=== PATIENT | male | born 1965 | race Caucasian/White ===

== ENCOUNTER 2017-07-05 18:30 | Emergency (ER) | payer MEDICAID, OTHER ==
[2017-07-05 18:36] VITALS: BMI 24.1
[2017-07-05 18:44] VITALS: RESP 18; TEMP 98.7
--- NOTE | 2017-07-05 19:47 | ED PDOC ---
Arrival/HPI - General Historian: Patient - History of Present Illness Time/Duration: Other (2 weeks) Symptom Course: Worsening Quality: Burning Severity Level: 10 - General Chief Complaint: Groin Pain Time Seen by Provider: 07/05/17 19:47 - History of Present Illness Narrative History of Present Illness (Text): 07/05/17 19:54 This is a 52 year old male with PMHx asthma who presents complaining of left sided groin pain. Patient states that it began 2 weeks ago but pain has exacerbated since then. The pain started out as numbness before converting to pain. It is localized in the suprapubic region. There is intermittent radiation up to the right lower quadrant of the abdomen. Patient states that his seasonal allergies have exacerbated the issue. Pain worsens with coughing, sneezing, and walking. Patient has tried Naproxen at home without relief. PMH: asthma PSH: denies Allergies: Seasonal Social: Denies tobacco, alcohol, drugs. Fam Hx: Non-contributory PMD: none (Gayjustin,Kvng S) Past Medical History - Provider Review Nursing Documentation Reviewed: Yes - Infectious Disease Hx of Infectious Diseases: None - Psychiatric Hx Substance Use: No Family/Social History - Physician Review Nursing Documentation Reviewed: Yes Family/Social History: No Known Family HX Smoking Status: Never Smoked Hx Alcohol Use: No Hx Substance Use: No Allergies/Home Meds Allergies/Adverse Reactions: Allergies No Known Allergies Allergy (Verified 07/05/17 18:38) Review of Systems - Review of Systems Constitutional: Normal Eyes: Normal ENT: Rhinorrhea, Other (sneezing) Respiratory: Cough (dry) Cardiovascular: Normal Gastrointestinal: Normal Genitourinary Male: Normal, Other (suprapubic pain) Musculoskeletal: Myalgias (generalized) Skin: Normal Neurological: Normal Endocrine: Normal Hemo/Lymphatic: Normal Psychiatric: Normal Physical Exam Vital Signs Reviewed: Yes Temperature: Afebrile Blood Pressure: Normal Pulse: Regular Respiratory Rate: Normal Appearance: Positive for: Well-Appearing Pain Distress: Mild Mental Status: Positive for: Alert and Oriented X 3 - Systems Exam Head: Present: Atraumatic, Normocephalic Pupils: Present: PERRL Extroacular Muscles: Present: EOMI Conjunctiva: Present: Normal Mouth: Present: Moist Mucous Membranes Neck: Present: Normal Range of Motion Respiratory/Chest: Present: Clear to Auscultation, Good Air Exchange. No: Accessory Muscle Use Cardiovascular: Present: Regular Rate and Rhythm, Normal S1, S2 Abdomen: Present: Normal Bowel Sounds. No: Tenderness, Distention Genitourinary Male: Present: Hernias (left inguinal hernia-reducible) Upper Extremity: Present: Normal Inspection, NORMAL PULSES. No: Edema Lower Extremity: Present: Normal Inspection, NORMAL PULSES. No: Edema, CALF TENDERNESS Neurological: Present: GCS=15, CN II-XII Intact Skin: Present: Warm, Dry, Normal Color. No: Rashes Psychiatric: Present: Alert, Oriented x 3 Medical Decision Making ED Course and Treatment: 07/05/17 20:02 Patient discharged with Motrin and Zyrtec and instructed to follow up with the [facility]. Information and prescriptions provided. (Kvng Hanna) Seen and examined with resident. 52 y/o M p/w L groin pain x 2-3 weeks. On examination, L inguinal hernia, reducible, nontender, no skin changes. (Sancho Kuhn) Disposition/Present on Arrival - Present on Arrival Any Indicators Present on Arrival: No History of DVT/PE: No History of Uncontrolled Diabetes: No Urinary Catheter: No History of Decub. Ulcer: No History Surgical Site Infection Following: None - Disposition Have Diagnosis and Disposition been Completed?: Yes Disposition Time: 20:00 - Disposition Diagnosis: Left inguinal hernia Disposition: HOME/ ROUTINE Patient Problems: Current Active Problems Problem Status Onset Left inguinal hernia Acute Condition: STABLE Additional Instructions: Please follow up at the [facility]. Their information has been provided in your paperwork. Please see them for management of your asthma and seasonal allergies. Please see them and get a referral for a surgeon to take care of your left sided inguinal hernia. Take Motrin 1 tab by mouth every 6 hours ONLY IF you have pain. Take it with food. Take Zyrtec 1 capsule by mouth once a day. If you experience any worsening symptoms or pain, please return to the emergency room. Prescriptions: Cetirizine HCl [Zyrtec] 10 mg PO DAILY #20 capsule Ibuprofen [Motrin] 600 mg PO Q6 PRN #20 tab PRN Reason: Pain, Moderate (4-7) Referrals: [facility] at [facility] [Outside] - Follow up with primary Forms: [employer] (Telugu)
[2017-07-05 20:40] VITALS: BP 135/76; PULSE 74; O2SAT 98
== END 2017-07-05 20:39 | disposition home or self-care (01) ==
LOC: ED 18:30
DX: K40.90 Unilateral inguinal hernia, without obstruction or gangrene, not specified as recurrent (principal)

== ENCOUNTER 2018-08-26 06:20 | Inpatient (IN) | payer MEDICAID, OTHER ==
[2018-08-26 07:57] LABS: BASO # 0.02 K/mm3 (0.0-2.0); BASO % 0.2 % (0.0-3.0); EOS # 0.3 (0.0-0.7); EOS % 3.3 % (1.5-5.0); GRAN # 5.31 (1.4-6.5); GRAN % 65.7 % (50.0-68.0); HEMOGLOBIN 12.4 g/dL (14.0-18.0); LYMPH # 1.9 (1.2-3.4); MEAN CELL VOLUME 78.5 fl (80.0-105.0); MEAN CORPUSCULAR HEMOGLOBIN 23.8 pg (25.0-35.0); MEAN CORPUSCULAR HGB CONC 30.2 g/dl (31.0-37.0); MEAN PLATELET VOLUME 10.6 fl (7.0-11.0); MONO # 0.6 (0.1-0.6); MONO % 6.8 % (1.0-6.0); RBC 5.22 10^6/uL (3.5-6.1); RED CELL DISTRIBUTION WIDTH 14.1 % (11.5-14.5); WHITE BLOOD COUNT 8.1 10^3/uL (4.5-11.0)
--- NOTE | 2018-08-26 08:06 | ED PDOC ---
Arrival/HPI - General Chief Complaint: Chest Pain Time Seen by Provider: 08/26/18 07:37 Historian: Patient - History of Present Illness Narrative History of Present Illness (Text): 08/26/18 07:32 53 M with PMHx of asthma, Colonoscopy (last August), who presents with cc of intermittent left sided chest pain radiating to left arm and neck since 2 hours prior to arrival. Patient reports he thought it was indigestion and took a few Pepto Bismol, with significant relief until symptoms returned. Patient notes intermittent pain in back, cold sweats, and fluttering of heart associated with pain felt on left side of chest. Patient states he felt nauseous and notes he never has nausea. Patient reports no current pain while laying down, but notes mild discomfort in left side of chest. Mother of heart disease at the age of 62. Patient is a nonsmoker and drinks "once in a blue." Patient denies shortness of breath or any other complaints. PMD: Dr. Alvarez Time/Duration: 1-3 hours (patient notes onset 2 hours prior to arrival ) Symptom Onset: Sudden Symptom Course: Unchanged Activities at Onset: Light Context: Home Past Medical History - Provider Review Nursing Documentation Reviewed: Yes - Infectious Disease Hx of Infectious Diseases: None - Cardiac Hx Cardiac Disorders: No - Pulmonary Hx Respiratory Disorders: Yes Hx Asthma: Yes (seasonal related to allergies) - Neurological Hx Neurological Disorder: No - HEENT Hx HEENT Disorder: No - Renal Hx Renal Disorder: No - Endocrine/Metabolic Hx Endocrine Disorders: No - Hematological/Oncological Hx Blood Disorders: No - Integumentary Hx Dermatological Disorder: No - Musculoskeletal/Rheumatological Hx Musculoskeletal Disorders: Yes Other/Comment: BILATERAL KNEE ARTHROSCOPIES - Gastrointestinal Hx Gastrointestinal Disorders: No - Genitourinary/Gynecological Hx Genitourinary Disorders: No - Psychiatric Hx Psychophysiologic Disorder: No Hx Substance Use: No - Surgical History Hx Arthroscopy: Yes (BILATERAL KNEES) - Anesthesia Hx Anesthesia: Yes Hx Anesthesia Reactions: No Hx Malignant Hyperthermia: No Family/Social History - Physician Review Nursing Documentation Reviewed: Yes Family/Social History: Other (Patient notes mother of heart disease at age of 62.) Smoking Status: Never Smoked Hx Alcohol Use: Yes Frequency of alcohol use: Socially Hx Substance Use: No Allergies/Home Meds Allergies/Adverse Reactions: Allergies shrimp Allergy (Verified 08/26/18 06:23) ITCHING Home Medications: Home Meds Medication Instructions Recorded Confirmed Albuterol HFA [Ventolin HFA 90 2 puff IH BID PRN 08/19/17 08/26/18 mcg/actuation (8 g)] Review of Systems - Physician Review All systems were reviewed & negative as marked: Yes (All other systems negative except that noted in the HPI.) Physical Exam - Physical Exam Narrative Physical Exam (Text): PE: Gen: VS reviewed, alert, well developed, well nourished, nontoxic, mild distress Eye: EOMI, PERRL Neck: no JVD, supple, no adenopathy CV: regular rate, regular rhythm, no rubs,no murmur, S1, S2 Pulm: no distress, clear to auscultation, no wheeze, no rhonchi, breath sounds equal, no rales Abd: soft, nontender, no guarding, no rebound, no rigidity Ext: no edema Skin: good color, no rash, no cyanosis Psych: responds appropriately to questions, normal affect Neuro: oriented x3, CN2-12 intact grossly, motor intact, sensation intact Vital Signs Reviewed: Yes Vital Signs Temp Pulse Resp BP Pulse Ox 08/26/18 06:31 97.5 F L 62 17 149/94 H 100 Temperature: Afebrile Blood Pressure: Normal Pulse: Regular Respiratory Rate: Normal Appearance: Positive for: Well-Appearing, Non-Toxic, Comfortable Pain Distress: Mild Mental Status: Positive for: Alert and Oriented X 3 Medical Decision Making ED Course and Treatment: 08/26/18 07:32 Impression: 53 M presents with cc of intermittent left sided chest pain radiating to left arm and neck since 2 hours prior to arrival. Differential Diagnosis included but are not limited to: Plan: -- Labs -- X-ray of chest -- monitoring and evaluation advisor -- Reassess and disposition Prior Visits: Notes and results from previous visits were reviewed. Patient was last seen in the emergency department on 07/05/17 for left sided groin pain. Patient was discharged home in stable condition, given directions for care, and directed to follow up with PMD. Progress Notes: 08/26/18 09:13 re-eval, patient feels better at this time, heart score =4, will admit for further workup, cardiac eval rule out acs, no significant clinical suspicion for aortic dissection 08/26/18 09:[address] Cohen who is aware of and agrees with plan. Dr. Cohen accepts admission. - Lab Interpretations Lab Results: 08/26/18 06:46 Lab Results 08/26/18 06:46: WBC 8.1, RBC 5.22, Hgb 12.4 L, Hct 41.0 L, MCV 78.5 L, MCH 23.8 L, MCHC 30.2 L, RDW 14.1, Plt Count 252, MPV 10.6, Gran % 65.7, Lymph % (Auto) 24.0, [place] % (Auto) 6.8 H, Eos % (Auto) 3.3, Baso % (Auto) 0.2, Gran # 5.31, Lymph # (Auto) 1.9, [place] # (Auto) 0.6, Eos # (Auto) 0.3, Baso # (Auto) 0.02 - RAD Interpretation Narrative RAD Interpretations (Text): 08/26/18 08:19 cxr my read: no focal infiltrate, no ptx, no pleural effusion. I agree with radiologist interpretations. Radiology Orders: 08/26/18 07:37 CHEST PORTABLE [RAD] Stat Shoe Designer: ED Physician - EKG Interpretation EKG Interpretation (Text): 08/26/18 08:06 0629: nsr at 64 bpm, nml qrs, nml axis, t wave inversion in leads v1-v2, however the t waves are not biphasic 08/26/18 09:45 Senior Electrical Project Manager read: NSR at 85 BPM Interpreted by ED Physician: Yes Type: 12 lead EKG - Scribe Statement The provider has reviewed the documentation as recorded by the Leigh Annibashok Lewis All medical record entries made by the Marietta were at my direction and personally dictated by me. I have reviewed the chart and agree that the record accurately reflects my personal performance of the history, physical exam, medical decision making, and the department course for this patient. I have also personally directed, reviewed, and agree with the discharge instructions and disposition. Disposition/Present on Arrival - Present on Arrival Any Indicators Present on Arrival: No History of DVT/PE: No History of Uncontrolled Diabetes: No Urinary Catheter: No History of Decub. Ulcer: No History Surgical Site Infection Following: None - Disposition Have Diagnosis and Disposition been Completed?: Yes Diagnosis: Angina at rest Disposition: HOSPITALIZED Disposition Time: 09:47 Patient Plan: Observation Patient Problems: Current Active Problems Problem Status Onset Angina at rest Acute Condition: STABLE
[2018-08-26 08:07] LABS: ALB/GLOB RATIO 1.4 (1.1-1.8); ALBUMIN 4.5 g/dL (3.0-4.8); ALT/SGPT 33 U/L (7-56); AST/SGOT 43 U/L (17-59); BLOOD UREA NITROGEN 22 mg/dL (7-21); CALCIUM 9.5 mg/dL (8.4-10.5); GFR NON-AFRICAN AMERICAN > 60
[2018-08-26 08:11] LABS: INR 0.97; PARTIAL THROMBOPLASTIN TIME 28.1 Seconds (25.1-36.5); PROTHROMBIN TIME 11.2 SECONDS (9.4-12.5)
--- NOTE | 2018-08-26 09:02 | RAD ---
Date of service: 08/26/2018 HISTORY: chest pain COMPARISON: No prior. FINDINGS: LUNGS: No active pulmonary disease. PLEURA: No significant pleural effusion identified, no pneumothorax apparent. CARDIOVASCULAR: No aortic atherosclerotic calcification present. Normal cardiac size. No pulmonary vascular congestion. OSSEOUS STRUCTURES: No significant abnormalities. VISUALIZED UPPER ABDOMEN: Normal. OTHER FINDINGS: None. IMPRESSION: No acute cardiopulmonary disease appreciated.
[2018-08-26 13:38] VITALS: BMI 21.9
[2018-08-26] MEDS ORDERED: Influenza Vaccine 60 mcg/0.5 mL SYR (4YR UP) IM ONE (13:39)
[2018-08-26] MEDS ORDERED: Pneumococcal 23-Valent Vaccine IM ONE (13:39)
--- NOTE | 2018-08-26 16:25 | CP.PCM.HP ---
History of Present Illness - History of Present Illness History of Present Illness: Dillon Marie PGY1 History and Physical for Dr Cohen Pt is a 53yo male with a PMH of asthma who presents to the ED complaining of chest pain which started at 3am last night. Pt states the pain was located on the left side of his chest, 8/10 burning pain which radiated to his neck, arm and shoulder blade. Pt states he ate some ice cream and brownies last night which may have caused him indigestion. He state he rarely experiences indig estion, but when he does it is not as intense as this episode. Pt states he exercises regularly. Pt states he felt nauseous, but denied vomiting. Pt states he felt some indigestion during the day yesterday and tried to take some PeptoBismol which did not help relieve the pain. Pt states he felt some palpitations during this episode. The pain was intermittent. Pt denies blood in the stool. A 12 point ROS was obtained and added to the HPI where appropriate. PMH: asthma uses rescue inhaler 3-4 times per week, never intubated PSH: inguinal hernia, colonoscopy (no abnormalities found) SH: occasional alcohol, never smoker, marijuana once every 3 months FH: Mother 62 , [place], [place], CHF. Father 79, HTN, DM Home meds: albuterol Allergies: NKDA PMD: Dr Alvarez Present on Admission - Present on Admission Any Indicators Present on Admission: No Review of Systems - Review of Systems Review of Systems: a 12 point ROS was obtained and added to the HPI where appropriate Past Patient History - Infectious Disease Hx of Infectious Diseases: None - Past Medical History & Family History Past Medical History?: Yes - Past Social History Smoking Status: Never Smoked - CARDIAC Hx Cardiac Disorders: No - PULMONARY Hx Respiratory Disorders: Yes Hx Asthma: Yes (seasonal related to allergies) - NEUROLOGICAL Hx Neurological Disorder: No - HEENT Hx HEENT Problems: No - RENAL Hx Chronic Kidney Disease: No - ENDOCRINE/METABOLIC Hx Endocrine Disorders: No - HEMATOLOGICAL/ONCOLOGICAL Hx Blood Disorders: No - INTEGUMENTARY Hx Dermatological Problems: No - MUSCULOSKELETAL/RHEUMATOLOGICAL Hx Musculoskeletal Disorders: Yes Hx Falls: No Other/Comment: b/l arthroscopic knee sx 4 yrs ago - GASTROINTESTINAL Hx Gastrointestinal Disorders: Yes Other/Comment: colonoscopy at [facility] [place] 07/14/18 post dx hemorrhoids, 15 lb weight loss due to " sports, walking, exercise." pt stated - GENITOURINARY/GYNECOLOGICAL Hx Genitourinary Disorders: No - PSYCHIATRIC Hx Psychophysiologic Disorder: No Hx Substance Use: No - SURGICAL HISTORY Hx Surgeries: Yes - ANESTHESIA Hx Anesthesia: Yes Hx Anesthesia Reactions: No Hx Malignant Hyperthermia: No Meds Allergies/Adverse Reactions: Allergies Allergy/AdvReac Type Severity Reaction Status Date / Time Gadolinium-Containing Allergy RASH Verified 08/26/18 17:18 Contrast Medi Iodinated Contrast- Oral and Allergy RASH Verified 08/26/18 17:18 IV Dye shrimp Allergy ITCHING Verified 08/26/18 06:23 Physical Exam - Constitutional Appears: Non-toxic, No Acute Distress - Head Exam Head Exam: ATRAUMATIC, NORMAL INSPECTION, NORMOCEPHALIC - Eye Exam Eye Exam: EOMI - ENT Exam ENT Exam: Mucous Membranes Moist - Neck Exam Neck exam: Positive for: Full Rom - Respiratory Exam Respiratory Exam: Clear to Auscultation Bilateral, NORMAL BREATHING PATTERN. absent: Wheezes, Respiratory Distress - Cardiovascular Exam Cardiovascular Exam: RRR, +S1, +S2. absent: Diastolic murmur, Systolic Murmur - GI/Abdominal Exam GI & Abdominal Exam: Normal Bowel Sounds, Soft - Extremities Exam Extremities exam: Positive for: full ROM, normal inspection. Negative for: calf tenderness, pedal edema, tenderness, pedal pulses present - Neurological Exam Neurological exam: Alert, Oriented x3 - Psychiatric Exam Psychiatric exam: Normal Affect, Normal Mood - Skin Skin Exam: Dry, Intact, Normal Color, Warm Results - Vital Signs Recent Vital Signs: Last Vital Signs Temp 98 F 08/26/18 11:58 Pulse 60 08/26/18 13:16 Resp 18 08/26/18 13:16 BP 138/81 08/26/18 11:58 Pulse Ox 98 08/26/18 11:58 - Labs Result Diagrams: 08/26/18 06:46 08/26/18 06:46 Labs: Laboratory Results - last 24 hr 08/26/18 08/26/18 08/26/18 06:46 06:46 06:46 WBC 8.1 RBC 5.22 Hgb 12.4 L Hct 41.0 L MCV 78.5 L MCH 23.8 L MCHC 30.2 L RDW 14.1 Plt Count 252 MPV 10.6 Gran % 65.7 Lymph % (Auto) 24.0 [place] % (Auto) 6.8 H Eos % (Auto) 3.3 Baso % (Auto) 0.2 Gran # 5.31 Lymph # (Auto) 1.9 [place] # (Auto) 0.6 Eos # (Auto) 0.3 Baso # (Auto) 0.02 PT 11.2 INR 0.97 APTT 28.1 D-Dimer, Quantitative Sodium 141 Potassium 4.3 Chloride 104 Carbon Dioxide 29 Anion Gap 13 BUN 22 H Creatinine 0.8 Est GFR ( Amer) > 60 Est GFR (Non-Af Amer) > 60 Random Glucose 108 Calcium 9.5 Total Bilirubin 0.8 AST 43 ALT 33 Alkaline Phosphatase 82 Troponin I 0.10 Total Protein 7.7 Albumin 4.5 Globulin 3.2 Albumin/Globulin Ratio 1.4 08/26/18 15:20 WBC RBC Hgb Hct MCV MCH MCHC RDW Plt Count MPV Gran % Lymph % (Auto) [place] % (Auto) Eos % (Auto) Baso % (Auto) Gran # Lymph # (Auto) [place] # (Auto) Eos # (Auto) Baso # (Auto) PT INR APTT D-Dimer, Quantitative < 200 Sodium Potassium Chloride Carbon Dioxide Anion Gap BUN Creatinine Est GFR ( Amer) Est GFR (Non-Af Amer) Random Glucose Calcium Total Bilirubin AST ALT Alkaline Phosphatase Troponin I Total Protein Albumin Globulin Albumin/Globulin Ratio Assessment & Plan - Assessment and Plan (Free Text) Assessment: Atypical Plan: NSTEMI - EKG shows some T wave inversions in septal leads, but no ST elevations or depressions - Troponin 0.1, 5.16, continue to trend - INR 0.97 - D-Dimer negative - HA1C - Lipid panel - UDS - TSH - follow up Mg, phos - pt given stat dose of ASA, plavix, lipitor, heparin drip, metoprolol - zofran PRN for nausea - ECHO ordered - NPO after midnight - Cardio consulted, Asiya plan for cath tomorrow morning - ICU consult, Dr Bolden Microcytic Anemia - Hgb 12.4 - iron, ferritin, TIBC - B12, folate - continue to monitor Asthma - no signs of wheezing, SOB, respiratory distress Ppx - pantoprazole - HHD Pt seen, examined, assessment and plan discussed with Dr Noel Marie PGY1, - Date & Time Date: 08/26/18 Time: 15:00
[2018-08-26] MEDS ORDERED: Heparin25000 units/250ml 1/2NS 25,000 UNITS/250 ML BAG IV SCH (16:30)
--- NOTE | 2018-08-26 17:12 | PN ---
DATE: 08/26/2018 SUBJECTIVE: I was notified at 04:23 p.m. with the consult on this patient who presented to the emergency room this morning. From the record, his EKG was done at around 06:30 a.m. The patient's initial EKG was unremarkable. However, second troponin was reported to be 5.16. The patient had 12 beats of nonsustained ventricular tachycardia on the monitor. The patient did report palpitation to the emergency room team prior to his admission. I did order a stat repeat EKG. I started the patient on intravenous heparin 5000 units bolus with a maintenance infusion as well as a loading dose of Plavix 300 mg, Lopressor 25 mg twice a day and Lipitor 80 mg daily and I requested the patient to be immediately transferred to the ICU. The patient will have stat repeat 12-lead EKG and there are no acute ischemic findings that warrant immediate cardiac cath, the patient will be scheduled for the procedure tomorrow a.m. unless the patient develops recurrent nonsustained ventricular tachycardia or hemodynamic instability. Case was discussed with Dr. Conway and will be discussed with the director veterinary, Dr. Bolden. Joshua Braden MD
--- NOTE | 2018-08-26 17:23 | CP.PCM.CON ---
History of Present Illness - History of Present Illness History of Present Illness: MICU CONSULT NOTE REASON FOR CONSULT: NSTEMI, NSVT HPI Patient is 53yo male with PMHx of asthma, presented to the ER complaining of ch ets pain, left sided, radiating down the left arm, associated with palpitations. Denies, fever, chills cough, sob, PARDO, dizziness. Initial cardiac enzymes and EKG were negative, repeat troponin 5, EKG with Qwaves in septal leads with TWI. Pt complaining of fluttering. No other constitutional symptoms. PMH: asthma PSH: inguinal hernia SH: occasional alcohol, never smoker, marijuana once every 3 months FH: Mother 62 , DM, CHF. Father 79, HTN, DM Home meds: albuterol Allergies: NKDA Review of Systems - Review of Systems Review of Systems: as per HPI Past Patient History - Infectious Disease Hx of Infectious Diseases: None - Past Medical History & Family History Past Medical History?: Yes - Past Social History Smoking Status: Never Smoked - CARDIAC Hx Cardiac Disorders: No - PULMONARY Hx Respiratory Disorders: Yes Hx Asthma: Yes (seasonal related to allergies) - NEUROLOGICAL Hx Neurological Disorder: No - HEENT Hx HEENT Problems: No - RENAL Hx Chronic Kidney Disease: No - ENDOCRINE/METABOLIC Hx Endocrine Disorders: No - HEMATOLOGICAL/ONCOLOGICAL Hx Blood Disorders: No - INTEGUMENTARY Hx Dermatological Problems: No - MUSCULOSKELETAL/RHEUMATOLOGICAL Hx Musculoskeletal Disorders: Yes Hx Falls: No Other/Comment: b/l arthroscopic knee sx 4 yrs ago - GASTROINTESTINAL Hx Gastrointestinal Disorders: Yes Other/Comment: colonoscopy at [facility] 07/14/18 post dx hemorrhoids, 15 lb weight loss due to " sports, walking, exercise." pt stated - GENITOURINARY/GYNECOLOGICAL Hx Genitourinary Disorders: No - PSYCHIATRIC Hx Psychophysiologic Disorder: No Hx Substance Use: No - SURGICAL HISTORY Hx Surgeries: Yes - ANESTHESIA Hx Anesthesia: Yes Hx Anesthesia Reactions: No Hx Malignant Hyperthermia: No Meds Allergies/Adverse Reactions: Allergies Allergy/AdvReac Type Severity Reaction Status Date / Time shrimp Allergy ITCHING Verified 08/26/18 06:23 - Medications Medications: Current Medications Acetaminophen (Tylenol 325mg Tab) 650 mg PO Q4H PRN PRN Reason: Fever >100.4 F Aspirin (Aspirin Chewable) 81 mg PO DAILY [facility] Atorvastatin Calcium (Lipitor) 80 mg PO DIN [facility] Heparin Sodium/Sodium Chloride (Heparin 53125 Units/250ml 1/2 Normal Saline) 25,000 units in 250 mls @ 7.62 mls/hr IV .Q24H [facility]; Protocol Last Admin: 08/26/18 16:58 Dose: 12 units/kg/hr, 7.62 mls/hr Metoprolol Tartrate (Lopressor) 25 mg PO BID [facility] Ondansetron HCl (Zofran Inj) 4 mg IVP Q4H PRN PRN Reason: Nausea/Vomiting Pantoprazole Sodium (Protonix Ec Tab) 40 mg PO 0600 [facility] Physical Exam - Constitutional Appears: Non-toxic, No Acute Distress - Head Exam Head Exam: NORMAL INSPECTION - Eye Exam Eye Exam: Normal appearance - ENT Exam ENT Exam: Mucous Membranes Moist - Neck Exam Neck exam: Positive for: Full Rom - Respiratory Exam Respiratory Exam: Clear to Auscultation Bilateral, NORMAL BREATHING PATTERN - Cardiovascular Exam Cardiovascular Exam: REGULAR RHYTHM, +S1, +S2 - GI/Abdominal Exam GI & Abdominal Exam: Normal Bowel Sounds, Soft - Extremities Exam Extremities exam: Positive for: normal inspection - Back Exam Back exam: NORMAL INSPECTION - Neurological Exam Neurological exam: Alert, Oriented x3 - Psychiatric Exam Psychiatric exam: Normal Affect - Skin Skin Exam: Normal Color, Warm Results - Vital Signs Recent Vital Signs: Last Vital Signs Temp 97.7 F 08/26/18 12:04 Pulse 60 08/26/18 13:16 Resp 18 08/26/18 13:16 BP 136/89 08/26/18 16:18 Pulse Ox 99 08/26/18 12:04 - Labs Result Diagrams: 08/26/18 06:46 08/26/18 06:46 Labs: Laboratory Results - last 24 hr 08/26/18 08/26/18 08/26/18 06:46 06:46 06:46 WBC 8.1 RBC 5.22 Hgb 12.4 L Hct 41.0 L MCV 78.5 L MCH 23.8 L MCHC 30.2 L RDW 14.1 Plt Count 252 MPV 10.6 Gran % 65.7 Lymph % (Auto) 24.0 Cannon % (Auto) 6.8 H Eos % (Auto) 3.3 Baso % (Auto) 0.2 Gran # 5.31 Lymph # (Auto) 1.9 Cannon # (Auto) 0.6 Eos # (Auto) 0.3 Baso # (Auto) 0.02 PT 11.2 INR 0.97 APTT 28.1 D-Dimer, Quantitative Sodium 141 Potassium 4.3 Chloride 104 Carbon Dioxide 29 Anion Gap 13 BUN 22 H Creatinine 0.8 Est GFR ( Amer) > 60 Est GFR (Non-Af Amer) > 60 Random Glucose 108 Calcium 9.5 Total Bilirubin 0.8 AST 43 ALT 33 Alkaline Phosphatase 82 Troponin I 0.10 Total Protein 7.7 Albumin 4.5 Globulin 3.2 Albumin/Globulin Ratio 1.4 08/26/18 08/26/18 15:20 15:20 WBC RBC Hgb Hct MCV MCH MCHC RDW Plt Count MPV Gran % Lymph % (Auto) Cannon % (Auto) Eos % (Auto) Baso % (Auto) Gran # Lymph # (Auto) Cannon # (Auto) Eos # (Auto) Baso # (Auto) PT INR APTT D-Dimer, Quantitative < 200 Sodium Potassium Chloride Carbon Dioxide Anion Gap BUN Creatinine Est GFR ( Amer) Est GFR (Non-Af Amer) Random Glucose Calcium Total Bilirubin AST ALT Alkaline Phosphatase Troponin I 5.16 H* D Total Protein Albumin Globulin Albumin/Globulin Ratio Assessment & Plan - Assessment and Plan (Free Text) Assessment: 53yo male a/w CP, NSTEMI, NSVT CP NSTEMI Non-sustained Vtach Asthma - currently afebrile, BP stable, comfortable in NAD - EKG with septal Qwaves, TWI - Troponin uptrending, started on heparin drip, given ASA, Plavix Recommend: - supp o2 as needed, Xopenex PRN, goal sat 92% - NO ID issues - BP control - FS control - ASA, Plavix, Statin, BB - heparin drip - NPO after MN for cath in Am - GI ppx - DVT ppx - Transfer to CCU
[2018-08-26] MEDS ORDERED: methylPREDNISolone 80 MG in Sodium Chloride 0.9% 100 ML IVPB SCH (18:00)
--- NOTE | 2018-08-26 18:42 | CARD ---
APPROVED REPORT Date of service: 08/26/2018 EKG Measurement Heart [id number] <Conclusion> Normal sinus rhythm Possible septal infarct, age undetermined Abnormal ECG
--- NOTE | 2018-08-26 19:12 | CARD ---
APPROVED REPORT Date of service: 08/26/2018 EKG Measurement Heart [id number] <Conclusion> Normal sinus rhythm with sinus arrhythmia Possible septal infarct, age undetermined Abnormal ECG
[2018-08-26 22:17] LABS: BARBITURATES, UR NEGATIVE (NEGATIVE); BENZODIAZEPINES, UR NEGATIVE (NEGATIVE); OPIATES, UR NEGATIVE (NEGATIVE); PHENCYCLIDINE, UR NEGATIVE (NEGATIVE)
[2018-08-27] MEDS ORDERED: Pantoprazole 40 mg EC Tab PO SCH (06:00)
[2018-08-27 06:44] LABS: IRON 63 ug/dL (45-180)
[2018-08-27 06:51] LABS: ALB/GLOB RATIO 1.4 (1.1-1.8); ALBUMIN 4.6 g/dL (3.0-4.8); ALT/SGPT 38 U/L (7-56); AST/SGOT 69 U/L (17-59); BLOOD UREA NITROGEN 17 mg/dL (7-21); CALCIUM 9.7 mg/dL (8.4-10.5); GFR NON-AFRICAN AMERICAN > 60; HDL CHOLESTEROL 65 mg/dL (29-60)
[2018-08-27 06:53] LABS: % IRON SATURATION 18 % (20-55); TOTAL IRON BINDING CAPACITY 358 ug/dL (261-462)
[2018-08-27 06:57] LABS: LDL CHOLESTEROL 101 mg/dL (0-129)
[2018-08-27 07:21] LABS: HEMOGLOBIN 13.1 g/dL (14.0-18.0); MEAN CELL VOLUME 77.6 fl (80.0-105.0); MEAN CORPUSCULAR HEMOGLOBIN 23.8 pg (25.0-35.0); MEAN CORPUSCULAR HGB CONC 30.7 g/dl (31.0-37.0); MEAN PLATELET VOLUME 10.1 fl (7.0-11.0); RBC 5.5 10^6/uL (3.5-6.1); RED CELL DISTRIBUTION WIDTH 14.1 % (11.5-14.5); WHITE BLOOD COUNT 8.6 10^3/uL (4.5-11.0)
[2018-08-27] MEDS ORDERED: Nitroglycerin 50mg in D5W 50 MG/250 ML BOTTLE IV ONE (09:01)
[2018-08-27] MEDS ORDERED: Iodixanol 320 MG/ML 100 ML BOTTLE IV ONE (09:01)
[2018-08-27] MEDS ORDERED: Iodixanol 320 MG/ML 200 ML BOTTLE IV ONE (09:01)
[2018-08-27] MEDS ORDERED: Iohexol 350mgl/ml 50 ML ONE (09:01)
[2018-08-27] MEDS ORDERED: Lidocaine 2% PF (10 ml) Amp ONE (09:01)
[2018-08-27] MEDS ORDERED: Phenylephrine 10 mg/ml Inj ONE (09:01)
[2018-08-27] MEDS ORDERED: DiphenhydrAMINE 50 mg/ml Inj ONE (11:03)
[2018-08-27] MEDS ORDERED: Midazolam 2 MG/2 ML VIAL ONE (11:03)
--- NOTE | 2018-08-27 11:11 | CP.CCUPN ---
<Yousif Arias - Last Filed: 08/27/18 16:02> CCU Subjective - Physician Review Subjective (Free Text): 08/27/18 11:08 Patient seen and examined at bedside in no acute distress. Patient states he has no major complaints overnight. Does admit to an episode or two of shortness of breath which lasted a few seconds. Patient states this has been going on for the past few years as he aged. States he slept fine. Amadou chest pain, palpitations, nausea, abdominal pain, dizziness, headache, diaphoresis, fevers, chills. Patient aware of cath procedure to take place this morning at 10 a.m. CCU Objective - Vital Signs / Intake & Output Vital Signs (Last 4 hours): Vital Signs Temp Pulse Resp BP Pulse Ox 08/27/18 08:52 71 124/80 08/27/18 08:14 97.5 F L 08/27/18 08:00 77 12 124/80 95 Intake and Output (Last 8hrs): Intake & Output 08/26/18 08/27/18 08/27/18 22:59 06:59 14:59 Intake Total 430 Output Total 900 Balance -470 Weight 63.219 kg Intake: IV 130 Right Forearm 90 Oral 300 Output: Urine 900 Urine, Voided 900 Other: # Voids Urine, Voided 2 - Physical Exam Head: Positive for: Atraumatic, Normocephalic Pupils: Positive for: PERRL Extroacular Muscles: Positive for: EOMI Mouth: Positive for: Moist Mucous Membranes Respiratory/Chest: Positive for: Clear to Auscultation. Negative for: Wheezes, Rhonchi Cardiovascular: Positive for: Regular Rate and Rhythm, Murmurs, Normal S1, S2 Abdomen: Negative for: Tenderness, Distention Upper Extremity: Positive for: Normal Inspection Lower Extremity: Positive for: Normal Inspection Neurological: Positive for: GCS=15, CN II-XII Intact, Speech Normal Skin: Positive for: Warm, Normal Color Psychiatric: Positive for: Alert, Oriented x 3, Normal Insight - Medications Active Medications: Active Medications Generic Name Dose Route Start Last Admin Trade Name Freq PRN Reason Stop Dose Admin Acetaminophen 650 mg 08/26/18 13:53 Tylenol 325mg Tab PO Q4H PRN Fever >100.4 F Aspirin 81 mg 08/27/18 10:00 08/27/18 08:52 Aspirin Chewable PO 81 mg DAILY [facility] Administration Atorvastatin Calcium 80 mg 08/26/18 17:00 08/26/18 19:51 Lipitor PO 80 mg DIN [facility] Administration Diphenhydramine HCl 25 mg 08/26/18 18:00 08/27/18 08:52 Benadryl PO 25 mg BID [facility] Administration Famotidine 20 mg 08/26/18 22:00 08/27/18 08:52 Pepcid PO 20 mg 1000,2200 [facility] Administration Heparin Sodium/Sodium Chloride 25,000 units in 250 mls @ 7.62 mls/hr 08/26/18 16:30 08/27/18 01:14 Heparin 88570 Units/250ml 1/2 Normal Saline IV 10 units/kg/hr .Q24H [facility] 6.35 mls/hr Titration Protocol 12 UNITS/KG/HR Methylprednisolone 80 mg 08/26/18 22:00 08/27/18 05:36 Solu-Medrol IV 80 mg Q8 [facility] Administration Metoprolol Tartrate 25 mg 08/26/18 18:00 08/27/18 08:52 Lopressor PO 25 mg BID [facility] Administration Ondansetron HCl 4 mg 08/26/18 13:53 Zofran Inj IVP Q4H PRN Nausea/Vomiting Pantoprazole Sodium 40 mg 08/27/18 06:00 08/27/18 05:21 Protonix Ec Tab PO Not Given 0600 [facility] [place] - Patient Studies Lab Studies: Lab Studies 08/27/18 08/27/18 08/27/18 Range/Units 06:30 06:15 06:15 WBC 8.6 (4.5-11.0) 10^3/uL RBC 5.50 (3.5-6.1) 10^6/uL Hgb 13.1 L (14.0-18.0) g/dL Hct 42.7 (42.0-52.0) % MCV 77.6 L (80.0-105.0) fl MCH 23.8 L (25.0-35.0) pg MCHC 30.7 L (31.0-37.0) g/dl RDW 14.1 (11.5-14.5) % Plt Count 267 (120.0-450.0) 10^3/uL MPV 10.1 (7.0-11.0) fl APTT 62.6 H (25.1-36.5) Seconds D-Dimer, Quantitative (0-243) ng/mlDDU Sodium (132-148) mmol/L Potassium (3.6-5.0) mmol/L Chloride (98-107) mmol/L Carbon Dioxide (21-33) mmol/L Anion Gap (10-20) BUN (7-21) mg/dL Creatinine (0.8-1.5) mg/dl Est GFR ( Amer) Est GFR (Non-Af Amer) Random Glucose (70-110) mg/dL Calcium (8.4-10.5) mg/dL Phosphorus (2.5-4.5) mg/dL Magnesium (1.7-2.2) mg/dL Iron (45-180) ug/dL TIBC (261-462) ug/dL % Saturation (20-55) % Total Bilirubin (0.2-1.3) mg/dL AST (17-59) U/L ALT (7-56) U/L Alkaline Phosphatase (38-126) U/L Troponin I ng/mL Total Protein (5.8-8.3) g/dL Albumin (3.0-4.8) g/dL Globulin gm/dL Albumin/Globulin Ratio (1.1-1.8) Triglycerides (35-160) mg/dL Cholesterol (130-200) mg/dL LDL Cholesterol Direct (0-129) mg/dL HDL Cholesterol (29-60) mg/dL Free T4 1.05 (0.78-2.19) ng/dL TSH 3rd Generation (0.46-4.68) mIU/mL Urine Opiates Screen (NEGATIVE) Urine Methadone Screen (NEGATIVE) Ur Barbiturates Screen (NEGATIVE) Ur Phencyclidine Scrn (NEGATIVE) Ur Amphetamines Screen (NEGATIVE) U Benzodiazepines Scrn (NEGATIVE) U Oth Cocaine Metabols (NEGATIVE) U Cannabinoids Screen (NEGATIVE) 08/27/18 08/27/18 08/27/18 Range/Units 06:15 06:15 06:15 WBC (4.5-11.0) 10^3/uL RBC (3.5-6.1) 10^6/uL Hgb (14.0-18.0) g/dL Hct (42.0-52.0) % MCV (80.0-105.0) fl MCH (25.0-35.0) pg MCHC (31.0-37.0) g/dl RDW (11.5-14.5) % Plt Count (120.0-450.0) 10^3/uL MPV (7.0-11.0) fl APTT (25.1-36.5) Seconds D-Dimer, Quantitative (0-243) ng/mlDDU Sodium 141 (132-148) mmol/L Potassium 4.9 (3.6-5.0) mmol/L Chloride 105 (98-107) mmol/L Carbon Dioxide 26 (21-33) mmol/L Anion Gap 15 (10-20) BUN 17 (7-21) mg/dL Creatinine 0.9 (0.8-1.5) mg/dl Est GFR ( Amer) > 60 Est GFR (Non-Af Amer) > 60 Random Glucose 136 H (70-110) mg/dL Calcium 9.7 (8.4-10.5) mg/dL Phosphorus 3.1 (2.5-4.5) mg/dL Magnesium 2.2 (1.7-2.2) mg/dL Iron 63 (45-180) ug/dL TIBC 358 (261-462) ug/dL % Saturation 18 L (20-55) % Total Bilirubin 1.2 (0.2-1.3) mg/dL AST 69 H D (17-59) U/L ALT 38 (7-56) U/L Alkaline Phosphatase 75 (38-126) U/L Troponin I ng/mL Total Protein 7.8 (5.8-8.3) g/dL Albumin 4.6 (3.0-4.8) g/dL Globulin 3.2 gm/dL Albumin/Globulin Ratio 1.4 (1.1-1.8) Triglycerides 35 (35-160) mg/dL Cholesterol 181 (130-200) mg/dL LDL Cholesterol Direct 101 (0-129) mg/dL HDL Cholesterol 65 H (29-60) mg/dL Free T4 (0.78-2.19) ng/dL TSH 3rd Generation 0.40 L (0.46-4.68) mIU/mL Urine Opiates Screen (NEGATIVE) Urine Methadone Screen (NEGATIVE) Ur Barbiturates Screen (NEGATIVE) Ur Phencyclidine Scrn (NEGATIVE) Ur Amphetamines Screen (NEGATIVE) U Benzodiazepines Scrn (NEGATIVE) U Oth Cocaine Metabols (NEGATIVE) U Cannabinoids Screen (NEGATIVE) 08/26/18 08/26/18 08/26/18 Range/Units 23:40 21:43 21:32 WBC (4.5-11.0) 10^3/uL RBC (3.5-6.1) 10^6/uL Hgb (14.0-18.0) g/dL Hct (42.0-52.0) % MCV (80.0-105.0) fl MCH (25.0-35.0) pg MCHC (31.0-37.0) g/dl RDW (11.5-14.5) % Plt Count (120.0-450.0) 10^3/uL MPV (7.0-11.0) fl APTT 86.2 H (25.1-36.5) Seconds D-Dimer, Quantitative (0-243) ng/mlDDU Sodium (132-148) mmol/L Potassium (3.6-5.0) mmol/L Chloride (98-107) mmol/L Carbon Dioxide (21-33) mmol/L Anion Gap (10-20) BUN (7-21) mg/dL Creatinine (0.8-1.5) mg/dl Est GFR ( Amer) Est GFR (Non-Af Amer) Random Glucose (70-110) mg/dL Calcium (8.4-10.5) mg/dL Phosphorus (2.5-4.5) mg/dL Magnesium (1.7-2.2) mg/dL Iron (45-180) ug/dL TIBC (261-462) ug/dL % Saturation (20-55) % Total Bilirubin (0.2-1.3) mg/dL AST (17-59) U/L ALT (7-56) U/L Alkaline Phosphatase (38-126) U/L Troponin I 6.00 H* ng/mL Total Protein (5.8-8.3) g/dL Albumin (3.0-4.8) g/dL Globulin gm/dL Albumin/Globulin Ratio (1.1-1.8) Triglycerides (35-160) mg/dL Cholesterol (130-200) mg/dL LDL Cholesterol Direct (0-129) mg/dL HDL Cholesterol (29-60) mg/dL Free T4 (0.78-2.19) ng/dL TSH 3rd Generation (0.46-4.68) mIU/mL Urine Opiates Screen Negative (NEGATIVE) Urine Methadone Screen Negative (NEGATIVE) Ur Barbiturates Screen Negative (NEGATIVE) Ur Phencyclidine Scrn Negative (NEGATIVE) Ur Amphetamines Screen Negative (NEGATIVE) U Benzodiazepines Scrn Negative (NEGATIVE) U Oth Cocaine Metabols Negative (NEGATIVE) U Cannabinoids Screen Negative (NEGATIVE) 08/26/18 08/26/18 08/26/18 Range/Units 15:20 15:20 14:00 WBC (4.5-11.0) 10^3/uL RBC (3.5-6.1) 10^6/uL Hgb (14.0-18.0) g/dL Hct (42.0-52.0) % MCV (80.0-105.0) fl MCH (25.0-35.0) pg MCHC (31.0-37.0) g/dl RDW (11.5-14.5) % Plt Count (120.0-450.0) 10^3/uL MPV (7.0-11.0) fl APTT (25.1-36.5) Seconds D-Dimer, Quantitative < 200 (0-243) ng/mlDDU Sodium (132-148) mmol/L Potassium (3.6-5.0) mmol/L Chloride (98-107) mmol/L Carbon Dioxide (21-33) mmol/L Anion Gap (10-20) BUN (7-21) mg/dL Creatinine (0.8-1.5) mg/dl Est GFR ( Amer) Est GFR (Non-Af Amer) Random Glucose (70-110) mg/dL Calcium (8.4-10.5) mg/dL Phosphorus (2.5-4.5) mg/dL Magnesium 2.3 H (1.7-2.2) mg/dL Iron (45-180) ug/dL TIBC (261-462) ug/dL % Saturation (20-55) % Total Bilirubin (0.2-1.3) mg/dL AST (17-59) U/L ALT (7-56) U/L Alkaline Phosphatase (38-126) U/L Troponin I 5.16 H* D ng/mL Total Protein (5.8-8.3) g/dL Albumin (3.0-4.8) g/dL Globulin gm/dL Albumin/Globulin Ratio (1.1-1.8) Triglycerides (35-160) mg/dL Cholesterol (130-200) mg/dL LDL Cholesterol Direct (0-129) mg/dL HDL Cholesterol (29-60) mg/dL Free T4 (0.78-2.19) ng/dL TSH 3rd Generation (0.46-4.68) mIU/mL Urine Opiates Screen (NEGATIVE) Urine Methadone Screen (NEGATIVE) Ur Barbiturates Screen (NEGATIVE) Ur Phencyclidine Scrn (NEGATIVE) Ur Amphetamines Screen (NEGATIVE) U Benzodiazepines Scrn (NEGATIVE) U Oth Cocaine Metabols (NEGATIVE) U Cannabinoids Screen (NEGATIVE) Laboratory Results - last 24 hr 08/26/18 08/26/18 08/26/18 14:00 15:20 15:20 WBC RBC Hgb Hct MCV MCH MCHC RDW Plt Count MPV APTT D-Dimer, Quantitative < 200 Sodium Potassium Chloride Carbon Dioxide Anion Gap BUN Creatinine Est GFR ( Amer) Est GFR (Non-Af Amer) Random Glucose Calcium Phosphorus Magnesium 2.3 H Iron TIBC % Saturation Total Bilirubin AST ALT Alkaline Phosphatase Troponin I 5.16 H* D Total Protein Albumin Globulin Albumin/Globulin Ratio Triglycerides Cholesterol LDL Cholesterol Direct HDL Cholesterol Free T4 TSH 3rd Generation Urine Opiates Screen Urine Methadone Screen Ur Barbiturates Screen Ur Phencyclidine Scrn Ur Amphetamines Screen U Benzodiazepines Scrn U Oth Cocaine Metabols U Cannabinoids Screen 08/26/18 08/26/18 08/26/18 21:32 21:43 23:40 WBC RBC Hgb Hct MCV MCH MCHC RDW Plt Count MPV APTT 86.2 H D-Dimer, Quantitative Sodium Potassium Chloride Carbon Dioxide Anion Gap BUN Creatinine Est GFR ( Amer) Est GFR (Non-Af Amer) Random Glucose Calcium Phosphorus Magnesium Iron TIBC % Saturation Total Bilirubin AST ALT Alkaline Phosphatase Troponin I 6.00 H* Total Protein Albumin Globulin Albumin/Globulin Ratio Triglycerides Cholesterol LDL Cholesterol Direct HDL Cholesterol Free T4 TSH 3rd Generation Urine Opiates Screen Negative Urine Methadone Screen Negative Ur Barbiturates Screen Negative Ur Phencyclidine Scrn Negative Ur Amphetamines Screen Negative U Benzodiazepines Scrn Negative U Oth Cocaine Metabols Negative U Cannabinoids Screen Negative 08/27/18 08/27/18 08/27/18 06:15 06:15 06:15 WBC RBC Hgb Hct MCV MCH MCHC RDW Plt Count MPV APTT D-Dimer, Quantitative Sodium 141 Potassium 4.9 Chloride 105 Carbon Dioxide 26 Anion Gap 15 BUN 17 Creatinine 0.9 Est GFR ( Amer) > 60 Est GFR (Non-Af Amer) > 60 Random Glucose 136 H Calcium 9.7 Phosphorus 3.1 Magnesium 2.2 Iron 63 TIBC 358 % Saturation 18 L Total Bilirubin 1.2 AST 69 H D ALT 38 Alkaline Phosphatase 75 Troponin I Total Protein 7.8 Albumin 4.6 Globulin 3.2 Albumin/Globulin Ratio 1.4 Triglycerides 35 Cholesterol 181 LDL Cholesterol Direct 101 HDL Cholesterol 65 H Free T4 TSH 3rd Generation 0.40 L Urine Opiates Screen Urine Methadone Screen Ur Barbiturates Screen Ur Phencyclidine Scrn Ur Amphetamines Screen U Benzodiazepines Scrn U Oth Cocaine Metabols U Cannabinoids Screen 08/27/18 08/27/18 08/27/18 06:15 06:15 06:30 WBC 8.6 RBC 5.50 Hgb 13.1 L Hct 42.7 MCV 77.6 L MCH 23.8 L MCHC 30.7 L RDW 14.1 Plt Count 267 MPV 10.1 APTT 62.6 H D-Dimer, Quantitative Sodium Potassium Chloride Carbon Dioxide Anion Gap BUN Creatinine Est GFR ( Amer) Est GFR (Non-Af Amer) Random Glucose Calcium Phosphorus Magnesium Iron TIBC % Saturation Total Bilirubin AST ALT Alkaline Phosphatase Troponin I Total Protein Albumin Globulin Albumin/Globulin Ratio Triglycerides Cholesterol LDL Cholesterol Direct HDL Cholesterol Free T4 1.05 TSH 3rd Generation Urine Opiates Screen Urine Methadone Screen Ur Barbiturates Screen Ur Phencyclidine Scrn Ur Amphetamines Screen U Benzodiazepines Scrn U Oth Cocaine Metabols U Cannabinoids Screen EKG/Cardiology Studies: Cardiology / EKG Studies 08/26/18 16:31 EKG [ELECTROCARDIOGRAM] Stat Comment: Reason For Exam: VT Review of Systems - Constitutional Constitutional: absent: Fever, Chills - EENT Eyes: absent: Blurred Vision Ears: absent: Dizziness - Cardiovascular Cardiovascular: absent: Chest Pain, Diaphoresis, Dyspnea, Pain Radiating to Arm/Neck/Jaw, Lightheadedness, Palpitations - Respiratory Respiratory: absent: Cough - Gastrointestinal Gastrointestinal: absent: Diarrhea, Nausea, Vomiting - Genitourinary Genitourinary: absent: Dysuria - Musculoskeletal Musculoskeletal: absent: Back Pain, Neck Pain - Neurological Neurological: absent: Dizziness, Headaches - Psychiatric Psychiatric: absent: Anxiety - Endocrine Endocrine: absent: Fatigue, Palpitations Critical Care Progress Note - Nutrition Nutrition: Nutrition Category Date Time Status NPO past midnight [NPO Diet] [DIET] Diets 08/26/18 Dinner Ordered Assessment/Plan - Assessment and Plan (Free Text) Assessment: 53 M with a history of asthma presenting with complaints of chest pain found to have NSTEMI associated with 12 episodes of NSVT. Plan: Neuro -AAO x 3 Cardiovascular -NSTEMI with 12 episodes of NSVT -Cardiology on case -EKG revealed Q wave inversions in septal leads and T wave inversions. Initial troponin 5.16 increased to 6 on repeat. Patient was started on heparin drip with loading dose of plavix. Patient to go for cath procedure today -Continue with Aspirin, Lipitor, lovenox, metoprolol -Keep normotensive -Maintain MAP>65 -Cath results show major blockages of LAD and RCA; patient will be transferred to [facility] for CABG Pulmonology -Duonebs PRN -Maintain O2 sat >92% Endocrine -Maintain euglycemia with a blood glucose between 140-180 -Maintain normothermia Heme -DVT prophylaxis with lovenox GI -Gi prophylaxis <Germán Altman - Last Filed: 08/28/18 11:38> CCU Objective - Vital Signs / Intake & Output Intake and Output (Last 8hrs): Intake & Output 08/27/18 08/28/18 08/28/18 22:59 06:59 14:59 Intake Total 900 Output Total 450 Balance 450 Intake: IV 500 Right Forearm 500 Oral 400 Output: Urine 450 Urine, Voided 450 - Patient Studies Lab Studies: Lab Studies 08/27/18 08/27/18 Range/Units 06:15 06:15 Hemoglobin A1c 5.0 (4.2-6.5) % Ferritin 191.0 ng/mL Vitamin B12 429 (239-931) pg/mL Folate 19.5 ng/mL Laboratory Results - last 24 hr 08/27/18 08/27/18 06:15 06:15 Hemoglobin A1c 5.0 Ferritin 191.0 Vitamin B12 429 Folate 19.5 Critical Care Progress Note - Nutrition Nutrition: Nutrition Category Date Time Status Heart Healthy Diet [DIET] Diets 08/27/18 Lunch Active Attending/Attestation - Attestation I have personally seen and examined this patient.: Yes I have fully participated in the care of the patient.: Yes I have reviewed all pertinent clinical information: Yes Notes (Text): 08/28/18 11:37 53 yo with NSTEMI s/p coronary angio--high grade lesion in LAD and RCA-->awaiting transfer to tertiary center for CABG. hold plavix, cont aspirin, bb-ers, statins, TAC.
[2018-08-27] MEDS ORDERED: Enoxaparin 60 mg Syringe SC SCH (12:45)
[2018-08-27 13:27] LABS: FOLATE 19.5 ng/mL
[2018-08-27] MEDS ORDERED: Morphine 2 mg/ml ISec IVP STA (14:03)
--- NOTE | 2018-08-27 15:42 | CON ---
DATE: 08/27/2018 HISTORY OF PRESENT ILLNESS: The patient is a 53-year-old male, who has no significant past medical history except for asthma for which he takes albuterol inhaler. The patient presents because of chest pain, palpitation associated with diaphoresis. The patient reports the chest discomfort to be retrosternal getting to the back. The patient was admitted yesterday to telemetry and the case was discussed with me with the medical team because of a second troponin of 5.1 and twelve beats run of nonsustained ventricular tachycardia. I reviewed the case with the medical team including Dr. Cohen and _the answerer and I ordered to transfer the patient to the ICU and initiating intravenous heparin infusion on therapeutic regimen, Lipitor and a loading dose of Plavix 300 was given. The patient was accepted in the ICU. I did also initiate the patient on Solu-Medrol, Pepcid and Benadryl because of history of shellfish allergy and is scheduled for cardiac catheterization today. At this time, the patient is chest pain free. SOCIAL HISTORY: Non-smoker. The patient is currently employed, he used to work with finance. MEDICATIONS: Aspirin 81 mg once a day, Lipitor 80 mg once a day, Lopressor 25 mg twice a day, Pepcid 20 mg twice a day, Protonix 40 mg twice a day, Solu-Medrol 80 mg _q 8 hr PHYSICAL EXAMINATION GENERAL: The patient is a middle-aged male who does not appear to be in acute distress. VITAL SIGNS: Blood pressure 124/80, heart rate 71, temperature _normal_, respirations 12. HEENT: Normocephalic. CHEST: Clear. HEART: S1 and S2 regular. ABDOMEN: Soft. EXTREMITIES: No edema. LABORATORY DATA: Toxicology screen is negative. SMA-7 is within normal limits expect for glucose of 136. Troponin is as follows: 0.10, 5.16, and 6.0. Hemoglobin and hematocrit 15.1 and 42.7. White count and platelet count are within normal limits. D-dimer is less than 200. Both EKGs revealed sinus rhythm, possible septal infract. ASSESSMENT: 1. Chest pain ,NSTEMI 2. History of shellfish allergy. RECOMMENDATIONS: The patient will undergo cardiac catheterization this morning. The procedure including risks of bleeding, stroke, heart attack as well as major anaphylactic reactions were fully explained to the patient, who understood them and agreed for the procedure. Joshua Braden MD [facility]
[2018-08-27] MEDS ORDERED: Albuterol-Ipratrop 3 mg / 0.5 (3 ml) UD IH PRN (16:03)
--- NOTE | 2018-08-27 16:37 | CARD ---
APPROVED REPORT Date of service: 08/27/2018 EXAM: Two-dimensional and M-mode echocardiogram with Doppler and color Doppler. INDICATION LVFX 2D DIMENSIONS Left Atrium (2D)4.1 (1.6-4.0cm)IVSd0.8 (0.7-1.1cm) LVDd4.8 (3.9-5.9cm)PWd1.0 (0.7-1.1cm) LVDs3.6 (2.5-4.0cm)FS (%) 26.1 % LVEF (%)51.4 (>50%) M-Mode DIMENSIONS Aortic Root3.70 (2.2-3.7cm)Aortic Cusp Exc.1.90 (1.5-2.0cm) Aortic Valve AoV Peak Kcxqczrc928.0cm/Cameron Peak GR.7mmHg Mitral Valve MV E Obnxkvna25.0cm/sMV A Zrpaddks30.9cm/sE/A ratio0.9 TDI Lateral E' Peak V13.10cm/sMedial E' Peak V8.48cm/sE/Lateral E'5.8 E/Medial E'9.0 Pulmonary Valve PV Peak Blogdtbl32.1cm/sPV Peak Grad.2mmHg Tricuspid Valve TR Peak Fyiqvmra779ch/sRAP [id number] Peak Gr.15mmHg [id number] LEFT VENTRICLE The left ventricle is normal size. There is normal left ventricular wall thickness. Left ventricle is borderline. Septal hypokinesis Transmitral Doppler flow pattern is Grade I-abnormal relaxation pattern. RIGHT VENTRICLE The right ventricle is normal size. There is normal right ventricular wall thickness. The right ventricular systolic function is normal. ATRIA The left atrium size is normal. The right atrium size is normal. AORTIC VALVE The aortic valve is normal in structure. No aortic regurgitation is present. There is no aortic valvular stenosis. MITRAL VALVE The mitral valve is normal in structure. There is no mitral valve regurgitation noted. There is no mitral valve stenosis. TRICUSPID VALVE The tricuspid valve is normal in structure. There is no tricuspid valve regurgitation noted. PULMONIC VALVE The pulmonary valve is normal in structure. There is no pulmonic valvular regurgitation. GREAT VESSELS The aortic root is normal in size. The IVC is normal in size and collapses >50% with inspiration. PERICARDIAL EFFUSION There is no pericardial effusion. <Conclusion> The left ventricle is normal size. There is normal left ventricular wall thickness. Left ventricle is borderline. Septal hypokinesis Transmitral Doppler flow pattern is Grade I-abnormal relaxation pattern.
--- NOTE | 2018-08-27 18:29 | CP.PCM.DIS ---
Provider - Provider Date of Admission: 08/26/18 16:34 Attending physician: Vonda Cohen MD Primary care physician: Lilly Alvarez MD Time Spent in preparation of Discharge (in minutes): 45 Diagnosis - Discharge Diagnosis (1) Myocardial infarction Status: Acute Priority: High (2) Asthma Status: Acute Hospital Course - Lab Results Lab Results: Most Recent Lab Values WBC 8.6 10^3/uL (4.5-11.0) 08/27/18 06:15 RBC 5.50 10^6/uL (3.5-6.1) 08/27/18 06:15 Hgb 13.1 g/dL (14.0-18.0) L 08/27/18 06:15 Hct 42.7 % (42.0-52.0) 08/27/18 06:15 MCV 77.6 fl (80.0-105.0) L 08/27/18 06:15 MCH 23.8 pg (25.0-35.0) L 08/27/18 06:15 MCHC 30.7 g/dl (31.0-37.0) L 08/27/18 06:15 RDW 14.1 % (11.5-14.5) 08/27/18 06:15 Plt Count 267 10^3/uL (120.0-450.0) 08/27/18 06:15 MPV 10.1 fl (7.0-11.0) 08/27/18 06:15 Gran % 65.7 % (50.0-68.0) 08/26/18 06:46 Lymph % (Auto) 24.0 % (22.0-35.0) 08/26/18 06:46 [place] % (Auto) 6.8 % (1.0-6.0) H 08/26/18 06:46 Eos % (Auto) 3.3 % (1.5-5.0) 08/26/18 06:46 Baso % (Auto) 0.2 % (0.0-3.0) 08/26/18 06:46 Gran # 5.31 (1.4-6.5) 08/26/18 06:46 Lymph # (Auto) 1.9 (1.2-3.4) 08/26/18 06:46 [place] # (Auto) 0.6 (0.1-0.6) 08/26/18 06:46 Eos # (Auto) 0.3 (0.0-0.7) 08/26/18 06:46 Baso # (Auto) 0.02 K/mm3 (0.0-2.0) 08/26/18 06:46 PT 11.2 SECONDS (9.4-12.5) 08/26/18 06:46 INR 0.97 08/26/18 06:46 APTT 62.6 Seconds (25.1-36.5) H 08/27/18 06:15 D-Dimer, Quantitative < 200 ng/mlDDU (0-243) 08/26/18 15:20 Sodium 141 mmol/L (132-148) 08/27/18 06:15 Potassium 4.9 mmol/L (3.6-5.0) 08/27/18 06:15 Chloride 105 mmol/L (98-107) 08/27/18 06:15 Carbon Dioxide 26 mmol/L (21-33) 08/27/18 06:15 Anion Gap 15 (10-20) 08/27/18 06:15 BUN 17 mg/dL (7-21) 08/27/18 06:15 Creatinine 0.9 mg/dl (0.8-1.5) 08/27/18 06:15 Est GFR ( Amer) > 60 08/27/18 06:15 Est GFR (Non-Af Amer) > 60 08/27/18 06:15 Random Glucose 136 mg/dL (70-110) H 08/27/18 06:15 Hemoglobin A1c 5.0 % (4.2-6.5) 08/27/18 06:15 Calcium 9.7 mg/dL (8.4-10.5) 08/27/18 06:15 Phosphorus 3.1 mg/dL (2.5-4.5) 08/27/18 06:15 Magnesium 2.2 mg/dL (1.7-2.2) 08/27/18 06:15 Iron 63 ug/dL (45-180) 08/27/18 06:15 TIBC 358 ug/dL (261-462) 08/27/18 06:15 % Saturation 18 % (20-55) L 08/27/18 06:15 Ferritin 191.0 ng/mL 08/27/18 06:15 Total Bilirubin 1.2 mg/dL (0.2-1.3) 08/27/18 06:15 AST 69 U/L (17-59) H D 08/27/18 06:15 ALT 38 U/L (7-56) 08/27/18 06:15 Alkaline Phosphatase 75 U/L (38-126) 08/27/18 06:15 Troponin I 6.00 ng/mL H* 08/26/18 21:32 Total Protein 7.8 g/dL (5.8-8.3) 08/27/18 06:15 Albumin 4.6 g/dL (3.0-4.8) 08/27/18 06:15 Globulin 3.2 gm/dL 08/27/18 06:15 Albumin/Globulin Ratio 1.4 (1.1-1.8) 08/27/18 06:15 Triglycerides 35 mg/dL (35-160) 08/27/18 06:15 Cholesterol 181 mg/dL (130-200) 08/27/18 06:15 LDL Cholesterol Direct 101 mg/dL (0-129) 08/27/18 06:15 HDL Cholesterol 65 mg/dL (29-60) H 08/27/18 06:15 Vitamin B12 429 pg/mL (239-931) 08/27/18 06:15 Folate 19.5 ng/mL 08/27/18 06:15 Free T4 1.05 ng/dL (0.78-2.19) 08/27/18 06:30 TSH 3rd Generation 0.40 mIU/mL (0.46-4.68) L 08/27/18 06:15 Urine Opiates Screen Negative (NEGATIVE) 08/26/18 21:43 Urine Methadone Screen Negative (NEGATIVE) 08/26/18 21:43 Ur Barbiturates Screen Negative (NEGATIVE) 08/26/18 21:43 Ur Phencyclidine Scrn Negative (NEGATIVE) 08/26/18 21:43 Ur Amphetamines Screen Negative (NEGATIVE) 08/26/18 21:43 U Benzodiazepines Scrn Negative (NEGATIVE) 08/26/18 21:43 U Oth Cocaine Metabols Negative (NEGATIVE) 08/26/18 21:43 U Cannabinoids Screen Negative (NEGATIVE) 08/26/18 21:43 - Hospital Course Hospital Course: Pt is a 53yo male with a PMH of asthma who presented to the ED complaining of chest pain that started around 3am the night prior. Pt stated the pain was 8/10, located on the left side of his chest with radiation to his neck, arm and shoulder blade. Pt stated he ate some ice cream and brownies before going to bed and thought it may have caused him indigestion. He thought he had some indigestion earlier in the day and took some pepto bismol with minimal relief but the pain eventually went away on its own before returning at night. He stated he rarely experiences indigestion, but when he does it is not as intense as this episode. The chest pain was intermittent throughout the night with associated palpitations and nausea, which scared him and prompted him to come to the ED. Pt does report he has a strong family history of heart disease. His mother and maternal grandmother both passed in their in 60s from heart disease. On admission, patient was asymptomatic. Initial cardiac enzymes was 0.10, EKG showed Q waves in septal leads with T-wave inversions but no ST elevations or depression. Cardiology was consulted. However second troponin was 5.16 and the patient had 12 beats unsustained ventricular tachycardia on monitor. He was s tarted on IV heparin 5000 units bolus with a maintenance infusion. He was also started on Aspirin, Plavix 300mg, Lopressor 25 BID, Lipitor 80mg, and transferred to ICU for optimal monitoring. A third troponin was 6.00 and repeat EKG showed Q waves and T-wave inversions in septal leads. Risk factor workup, including D-dimer, HgbA1C, TSH, and lipid panel were unremarkable. Pt underwent cardiac catheterization with Dr. Braden which showed triple-vessel disease. Interventional cardiology, Dr. Rodriguez was consulted and counselled the patient on risks and benefits of CABG vs PCI. Pt elected to have CABG over percutaneous intervention. He will be transferred out to [facility] [place]. - Date & Time of H&P Date of H&P: 08/27/18 Time of H&P: 07:00 Discharge Exam - Head Exam Head Exam: ATRAUMATIC, NORMAL INSPECTION, NORMOCEPHALIC - Eye Exam Eye Exam: EOMI - ENT Exam ENT Exam: Mucous Membranes Moist - Respiratory Exam Respiratory Exam: NORMAL BREATHING PATTERN, UNREMARKABLE. absent: Accessory Muscle Use, Wheezes - Cardiovascular Exam Cardiovascular Exam: +S1, +S2. absent: Diastolic murmur, Systolic Murmur - GI/Abdominal Exam GI & Abdominal Exam: Normal Bowel Sounds, Tenderness - Extremities Exam Extremities exam: full ROM, pedal pulses present - Neurological Exam Neurological exam: Alert, Normal Gait, Oriented x3 - Psychiatric Exam Psychiatric exam: Normal Affect, Normal Mood - Skin Skin Exam: Dry, Intact, Warm Discharge Plan - Follow Up Plan Condition: STABLE Disposition: HOME/ ROUTINE Additional Instructions: 1. you are being transferred to [facility] for evaluation for CABG 2. after discharge please follow up with your primary care physician 3. 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 if your symptoms return or worsen, please go to the nearest emergency department Referrals: Lilly Alvarez MD [Primary Care Provider] -
[2018-08-27 19:53] VITALS: O2SAT 97
[2018-08-27 19:55] VITALS: TEMP 97.5
[2018-08-27 20:49] VITALS: BP 126/72; RESP 21
[2018-08-27 20:50] VITALS: PULSE 73
--- NOTE | 2018-08-27 23:47 | CARDCATH ---
PROCEDURE DATE: 08/27/2018 LEFT HEART CATHETERIZATION The patient is a 53-year-old male, who presents because of chest pain, [id number] myocardial infarction is ruled in. Cardiac catheterization was recommended. Procedure and its risks fully explained to the patient, understood and agreed for procedure. PROCEDURE: After local infiltration with 1% Lidocaine, a 6-Bermudian sheath was placed in the right femoral artery. Right and left coronary angiography performed with 6-Bermudian JR4 and JL3.5 diagnostic catheters. Left ventriculogram and aortogram were performed with a 6-Bermudian pigtail catheter. The patient tolerated the procedure well without any complications. ANGIOGRAPHIC FINDINGS: Selective injection of right coronary artery via the large dominant vessel. It has 70% mid to distal stenosis. The PDA had 70% ostial stenosis and significant proximal right coronary artery narrowing. Selective injection of left coronary artery revealed left main to be a medium-sized normal vessel that bifurcated into medium-sized LAD and medium-sized circumflex artery. LAD has complex 3 lesions in its proximal and mid segment involving the ostia of the first, second and third diagonal branches. The severity of the lesions ranged from 80-95%. They also involved the ostium of the first septal demolition specialist. The circumflex artery gave off one major obtuse marginal branch that branch had 60% ostial narrowing. Left ventriculogram performed in the GAYTAN projection revealed normal wall motion, normal ejection fraction estimated at 55%. Aortography performed in the JOSE projection revealed normal aortic foci. There was no aortic insufficiency or dissection. ASSESSMENT: Significant 2-vessel coronary artery disease with critical complex lesions involving the entire proximal and mid left anterior descending as well as discrete 70% stenosis of the mid to distal RCA and borderline disease of the main obtuse marginal branch with normal systolic function. RECOMMENDATIONS: Case was rediscussed with Dr. Rodriguez for possible PCI to the LAD and if not feasible, the patient would be considered for coronary artery bypass surgery. Joshua Braden MD
== END 2018-08-27 21:39 | disposition short-term general hospital (02) | DRG 121 ==
LOC: ED 06:20 → ERH 09:45 → 2RNO 12:13 → OBSVTOIN 16:34 → CCU 18:12
PROVIDERS: ADMIT Internal Medicine; ATTEND Internal Medicine
PROC: 4A023N7 Measurement of Cardiac Sampling and Pressure, Left Heart, Percutaneous Approach (ICD-10-PCS; principal; 2018-08-27)
PROC: B2111ZZ Fluoroscopy of Multiple Coronary Arteries using Low Osmolar Contrast (ICD-10-PCS; 2018-08-27)
PROC: B2151ZZ Fluoroscopy of Left Heart using Low Osmolar Contrast (ICD-10-PCS; 2018-08-27)
DX: I21.4 Non-ST elevation (NSTEMI) myocardial infarction (principal); I47.2 Ventricular tachycardia; I25.119 Atherosclerotic heart disease of native coronary artery with unspecified angina pectoris; J45.909 Unspecified asthma, uncomplicated; Z79.899 Other long term (current) drug therapy; Z82.49 Family history of ischemic heart disease and other diseases of the circulatory system; Z83.3 Family history of diabetes mellitus; Z91.013 Allergy to seafood; Z95.1 Presence of aortocoronary bypass graft; R40.2412 Glasgow coma scale score 13-15, at arrival to emergency department